=== PATIENT | male | born 2000 | race African-American/Black ===

== ENCOUNTER 2024-10-14 00:12 | Emergency (ER) | payer MEDICAID ==
[~2024-10-14] VITALS: Ht 182.9 cm; Wt 82.0 kg
[2024-10-14] MEDS: SODIUM CHLORIDE 0.9% 2,000 ML IV ONE (00:24)
[2024-10-14] MEDS: MORPHINE SULFATE 4 MG/ML INJ (FOR IV/IM USE) IV ONE (00:26)
[2024-10-14] MEDS: TETANUS, DIPHTHERIA, PERTUSSIS VAC/PF 0.5ML (>10YR OLD) IM ONE (00:28)
[2024-10-14 00:47] LABS: BASOPHILS % 0.4 % (0.0-2.0); EOSINOPHILS % 1.3 % (0.0-5.0); HEMATOCRIT. 36.2 % (42.0-52.0); HEMOGLOBIN. 11.0 g/dL (14.0-18.0); LYMPHOCYTES % 54.5 % (20.0-50.0); MEAN PLATELET VOLUME 9.3 fl (7.4-10.4); MONOCYTES % 6.5 % (2.0-8.0); NEUTROPHILS % 37.3 % (40.0-76.0); PLATELET 223 x1000/uL (130-400); RED BLOOD CELL COUNT 4.43 mill/uL (4.7-6.1); RED CELL DISTRIBUTION WIDTH 16.1 % (11.6-14.6)
[2024-10-14 00:56] LABS: CREATININE 1.5 mg/dL (0.6-1.3); ETHANOL BLOOD < 10 mg/dL (<10); UREA NITROGEN BLOOD 14 mg/dL (9-23)
[2024-10-14 00:57] LABS: TROPONIN I HIGH SENSITIVITY 5 ng/L (3.0-53)
[2024-10-14 00:58] LABS: ASPARTATE AMINOTRANSFERASE 23 IU/L (<34); BILIRUBIN DIRECT 0.1 mg/dL (<=3.0); BILIRUBIN TOTAL 0.4 mg/dL (0.1-1.0); PROTEIN TOTAL 7.1 g/dL (6.0-8.3)
[2024-10-14 01:00] VITALS: BP 105/61; PULSE 101; RESP 16; TEMP 36.1; O2SAT 100
[2024-10-14] MEDS: CALCIUM CHLORIDE 1,000 MG in SODIUM CHLORIDE 0.9% 100 ML IV ONE (01:13)
[2024-10-14 01:21] LABS: INR 1.0
== END 2024-10-14 01:30 | disposition short-term general hospital (02) ==
LOC: EDBD 00:12 → ER 00:12
DX: S21.111A Laceration without foreign body of right front wall of thorax without penetration into thoracic cavity, initial encounter (principal); J94.2 Hemothorax; R57.8 Other shock; X58.XXXA Exposure to other specified factors, initial encounter; Y93.89 Activity, other specified; Y92.89 Other specified places as the place of occurrence of the external cause; Y99.8 Other external cause status
CPT/HCPCS: 80076; 80048; 80320; 83690; 85025; 85610; 85730; 86850; 86900; 86901; 86920; 84484; 36415; 71045; 72170; 90715; 93005; 32551; 90471; 96365; 96375; 99291; J3490; J2060; J2270; J7050; J7030; 36430; P9016; G0480